=== PATIENT | male | born 1945 | race Caucasian/White ===

== ENCOUNTER 2021-03-13 05:29 | Inpatient (IN) | payer OTHER ==
[~2021-03-13] VITALS: Ht 165 cm; Wt 78.0 kg
[~2021-03-13 05:29] MED LIST: ALLOPURINOL100 MG PO; CARDURA2 MG PO; FENOFIBRATE48 MG PO; FINASTERIDE5 MG PO; FISH OIL-OMEGA1 EACH PO; FOLIC ACID1 MG PO; LUTEIN20 M1 PO; NORCO 5-325 TA1 EACH PO; SERTRALINE HCL50 MG PO; SPIRONOLACTONE1 EACH PO; TAMSULOSIN HCL0.4 MG PO; TENORMIN50 MG PO; VISION PLUS LU1 EACH PO; WELLBUTRIN75 MG PO
[2021-03-14 06:02] LABS: BASOPHIL 0.1 % (0-2); EOSINOPHIL 0 % (0-7); HCT 28.7 % (42.0-52.0); HGB 9.5 g/dl (13.2-18.0); MCH 30.4 pg (25.0-31.0); MCHC 33.1 g/dL (32.0-36.0); MONOCYTE 9.4 % (0-12); MPV 10.4 fL (6.0-9.5); NRBC 0; PLT 172 K/uL (150-400); RBC 3.12 M/uL (4.70-6.00); RDW 14.5 % (11.5-14.0); WBC 11.5 K/uL (4.0-10.5)
[2021-03-14 06:24] LABS: BUN/CREAT RATIO (CALC) 30.6 RATIO; CREATININE 1.24 mg/dL (0.67-1.17); POTASSIUM 4.8 mmol/L (3.5-5.1)
[2021-03-14] MEDS ORDERED: NORCO 5-325 TA1 EACH PO (09:57)
[2021-03-14] MEDS ORDERED: FEOSOL325 MG PO (09:57)
[2021-03-14] MEDS ORDERED: ASPIRIN325 MG PO (09:57)
== END 2021-03-14 13:02 | disposition home or self-care (01) | DRG 483 ==
LOC: FSDC 05:29 → FMS 05:29
PROVIDERS: ADMIT Legal Medicine
PROC: 0RRJ00Z Replacement of Right Shoulder Joint with Reverse Ball and Socket Synthetic Substitute, Open Approach (ICD-10-PCS; principal; 2021-03-13 07:00)
PROC: 3E0U33Z Introduction of Anti-inflammatory into Joints, Percutaneous Approach (ICD-10-PCS; 2021-03-13 07:00)
DX: M19.011 Primary osteoarthritis, right shoulder (principal); M75.101 Unspecified rotator cuff tear or rupture of right shoulder, not specified as traumatic; I10 Essential (primary) hypertension; E78.5 Hyperlipidemia, unspecified; R01.1 Cardiac murmur, unspecified; Z90.49 Acquired absence of other specified parts of digestive tract; Z90.89 Acquired absence of other organs; Z86.73 Personal history of transient ischemic attack (TIA), and cerebral infarction without residual deficits; Z87.440 Personal history of urinary (tract) infections; Z98.890 Other specified postprocedural states; Z88.5 Allergy status to narcotic agent; Z88.6 Allergy status to analgesic agent; Z88.8 Allergy status to other drugs, medicaments and biological substances
CPT/HCPCS: 36415; 73020; 80048; 85025; 86850; 86900; 86901; 94010; 94760; 94762; 97116; 97161; 97165; 97535; C1713; C1776; J0171; J0697; J1040; J1100; J2250; J2405; J2704; J2710; J2795; J3010; J7120; U0002